=== PATIENT | female | born 1970 | race Caucasian/White ===

== ENCOUNTER 2020-04-03 07:02 | Outpatient (CLI) | payer OTHER, SELFPAY ==
[2020-04-03 07:30] LABS: Basophils Percent Auto 0.5 % (0.2-1.2); Eosinophils Absolute Auto 0.1 K/mm3 (0-0.3); Eosinophils Percent Auto 1.4 % (0-4.4); Hematocrit 40.4 % (37.0-47.0); Hemoglobin 12.8 g/dL (12.0-15.0); Immature Granulocyte Absolute 0.02 K/mm3 (0.00-0.031); Immature Granulocyte Percent A 0.3 % (0-0.5); Lymphocytes Absolute Auto 2.94 K/mm3 (0.9-3.2); Lymphocytes Percent Auto 38.4 % (18.3-44.2); Mean Corpuscular HGB Conc 31.7 g/dl (32-36); Mean Corpuscular Hemoglobin 29.5 pg (26-34); Mean Corpuscular Volume 93.1 fl (80-100); Mean Platelet Volume 9.5 fl (7.4-10.4); Monocytes Absolute Auto 0.5 K/mm3 (0.1-0.6); Monocytes Percent Auto 7.1 % (2.6-8.5); Neutrophils Percent Auto 52.3 % (45.5-73.1); Platelet Count Result 238 k/mm3 (150-375); Red Blood Count 4.34 M/mm3 (4.2-5.4); Red Cell Distribution Width 12.6 % (11.5-14.5); White Blood Count 7.7 K/mm3 (4.5-10.0)
[2020-04-03 07:42] LABS: Alanine Aminotransferase 19 U/L (4-35); Albumin Level 4.2 g/dL (3.5-5.1); Alkaline Phosphatase 81 U/L (38-126); Anion Gap 5 mmol/L (8-16); Aspartate Amino Transferase 26 U/L (14-36); Bilirubin,Total 0.4 mg/dL (0.2-1.3); Blood Urea Nitrogen 18 mg/dL (7-17); Calcium 8.8 mg/dL (8.4-10.2); Carbon Dioxide 28 mmol/L (22-30); Chloride 107 mmol/L (98-107); Cholesterol 231 mg/dL (0-200); Estimated Glomerular Filt Rate > 60; Glucose 98 mg/dL (65-105); HDL Direct 49 mg/dL; Potassium 4.2 mmol/L (3.4-5.0); Sodium 140 mmol/L (137-145); Triglycerides 75 mg/dL (<150)
[2020-04-03 07:53] LABS: LDL Cholesterol Direct 160 mg/dL
== END 2020-04-03 07:03 | disposition home or self-care (01) ==
PROVIDERS: PCP Internal Medicine Infectious Disease; Visit Provider Internal Medicine Infectious Disease
DX: Z00.00 Encounter for general adult medical examination without abnormal findings (principal)
CPT/HCPCS: 36415; 80053; 80061; 85025

== ENCOUNTER → 2020-05-17 15:19 | Outpatient (CLI) | payer OTHER, SELFPAY ==
--- NOTE | ~2020-05-17 | MM_ITS ---
EXAMINATION: MM screening [facility] BI w esther HISTORY: Screening mammogram TECHNIQUE: Craniocaudal and mediolateral oblique 3-D tomosynthesis images were obtained and synthetic 2-D images were generated. CAD analysis was submitted and interpreted. COMPARISON: 04/17/2017, 01/05/2015 BREAST PARENCHYMAL COMPOSITION: There are scattered areas of fibroglandular density. FINDINGS: A stable intramammary lymph node is noted in the lower outer right breast. There is no evid ence of suspicious mass, calcification, or architectural distortion to suggest malignancy in either b reast. There has been no suspicious interval change. IMPRESSION: 1. No mammographic evidence of malignancy. 2. Recommend routine screening mammography in one year. BI-RADS Category 2: Benign finding(s). Reviewed, dictated and finalized at location A.
== END ==
PROVIDERS: Visit Provider Internal Medicine Infectious Disease
DX: Z12.31 Encounter for screening mammogram for malignant neoplasm of breast (principal)
CPT/HCPCS: 77063; 77067

== ENCOUNTER 2020-05-26 15:45 | Outpatient (CLI) | payer OTHER, SELFPAY | END 2020-05-26 15:46 | disposition home or self-care (01) | LOC: ANHCOVIDVC 15:45 | DX: Z23 Encounter for immunization (principal) | CPT/HCPCS: 0001A; 91300 ==

== ENCOUNTER 2020-06-16 15:43 | Outpatient (CLI) | payer OTHER, SELFPAY | END 2020-06-16 15:44 | LOC: ANHCOVIDVC 15:44 | DX: Z23 Encounter for immunization (principal) | CPT/HCPCS: 0002A; 91300 ==

== ENCOUNTER 2021-04-06 08:53 | Outpatient (CLI) | payer OTHER, SELFPAY ==
[2021-04-06 09:31] LABS: Basophils Percent Auto 0.4 % (0.2-1.2); Eosinophils Percent Auto 0.5 % (0-4.4); Hematocrit 37.4 % (37.0-47.0); Hemoglobin 12.1 g/dL (12.0-15.0); Immature Granulocyte Absolute 0.03 K/mm3 (0.00-0.031); Immature Granulocyte Percent A 0.4 % (0-0.5); Lymphocytes Absolute Auto 2.63 K/mm3 (0.9-3.2); Lymphocytes Percent Auto 34.6 % (18.3-44.2); Mean Corpuscular HGB Conc 32.4 g/dl (32-36); Mean Corpuscular Hemoglobin 30.4 pg (26-34); Mean Platelet Volume 10.2 fl (7.4-10.4); Monocytes Absolute Auto 0.4 K/mm3 (0.1-0.6); Monocytes Percent Auto 5.7 % (2.6-8.5); Neutrophils Absolute Auto 4.5 K/mm3 (1.3-6.7); Neutrophils Percent Auto 58.4 % (45.5-73.1); Platelet Count Result 244 k/mm3 (150-375); Red Blood Count 3.98 M/mm3 (4.2-5.4); Red Cell Distribution Width 11.9 % (11.5-14.5); White Blood Count 7.6 K/mm3 (4.5-10.0)
[2021-04-06 09:40] LABS: Alanine Aminotransferase 16 U/L (4-35); Albumin Level 4.2 g/dL (3.5-5.1); Alkaline Phosphatase 120 U/L (38-126); Anion Gap 10 mmol/L (8-16); Aspartate Amino Transferase 29 U/L (14-36); Bilirubin,Total 0.4 mg/dL (0.2-1.3); Blood Urea Nitrogen 13 mg/dL (7-17); Carbon Dioxide 27 mmol/L (22-30); Chloride 103 mmol/L (98-107); Cholesterol 200 mg/dL (0-200); Estimated Glomerular Filt Rate > 60; Glucose 100 mg/dL (65-110); HDL Direct 37 mg/dL; Potassium 3.9 mmol/L (3.4-5.0); Sodium 140 mmol/L (137-145); Triglycerides 96 mg/dL (<150)
[2021-04-06 09:51] LABS: LDL Cholesterol Direct 140 mg/dL
== END 2021-04-06 08:54 | disposition home or self-care (01) ==
LOC: ANHLAB 08:55
PROVIDERS: Visit Provider Internal Medicine Infectious Disease
DX: Z00.00 Encounter for general adult medical examination without abnormal findings (principal)
CPT/HCPCS: 36415; 80053; 80061; 85025

== ENCOUNTER → 2021-08-05 10:32 | Outpatient (CLI) | payer OTHER, SELFPAY ==
--- NOTE | ~2021-08-05 | MM_ITS ---
EXAMINATION: MM screening [facility] BI w esther HISTORY: Screening TECHNIQUE: Craniocaudal and mediolateral oblique 3-D tomosynthesis images were obtained and synthetic 2-D images were generated. CAD analysis was submitted and interpreted. COMPARISON: Comparison to multiple prior studies sequentially, with oldest reviewed study dated 12/20. BREAST PARENCHYMAL COMPOSITION: There are scattered areas of fibroglandular density. FINDINGS: There is no evidence of suspicious mass, calcification, or architectural distortion to sugg est malignancy in either breast. There has been no suspicious interval change. IMPRESSION: 1. No mammographic evidence of malignancy. 2. Recommend routine screening mammography in one year. BI-RADS Category 1: Negative Reviewed, dictated and finalized at location A.
== END ==
PROVIDERS: PCP Internal Medicine Infectious Disease; Visit Provider Obstetrics & Gynecology
DX: Z12.31 Encounter for screening mammogram for malignant neoplasm of breast (principal)
CPT/HCPCS: 77063; 77067

== ENCOUNTER 2022-04-08 07:21 | Outpatient (CLI) | payer OTHER, SELFPAY ==
[2022-04-08 07:54] LABS: Basophils Percent Auto 0.4 % (0.2-1.2); Eosinophils Absolute Auto 0.1 K/mm3 (0-0.3); Hematocrit 37.4 % (37.0-47.0); Hemoglobin 11.8 g/dL (12.0-15.0); Immature Granulocyte Absolute 0.03 K/mm3 (0.00-0.031); Immature Granulocyte Percent A 0.4 % (0-0.5); Lymphocytes Percent Auto 39.3 % (18.3-44.2); Mean Corpuscular HGB Conc 31.6 g/dl (32-36); Mean Corpuscular Hemoglobin 29.9 pg (26-34); Mean Corpuscular Volume 94.7 fl (80-100); Mean Platelet Volume 9.9 fl (7.4-10.4); Monocytes Absolute Auto 0.6 K/mm3 (0.1-0.6); Monocytes Percent Auto 7.9 % (2.6-8.5); Neutrophils Absolute Auto 3.9 K/mm3 (1.3-6.7); Platelet Count Result 227 k/mm3 (150-375); Red Blood Count 3.95 M/mm3 (4.2-5.4); Red Cell Distribution Width 12.2 % (11.5-14.5); White Blood Count 7.6 K/mm3 (4.5-10.0)
[2022-04-08 08:07] LABS: Alanine Aminotransferase 18 U/L (6-35); Albumin Level 3.8 g/dL (3.5-5.1); Alkaline Phosphatase 74 U/L (38-126); Anion Gap 2 mmol/L (8-16); Aspartate Amino Transferase 20 U/L (14-36); Bilirubin,Total 0.5 mg/dL (0.2-1.3); Blood Urea Nitrogen 12 mg/dL (7-17); Calcium 8.3 mg/dL (8.4-10.2); Carbon Dioxide 30 mmol/L (22-30); Chloride 108 mmol/L (98-107); Cholesterol 201 mg/dL (0-200); Estimated Glomerular Filt Rate > 60; Glucose 96 mg/dL (65-110); HDL Direct 39 mg/dL; Potassium 4.1 mmol/L (3.4-5.0); Sodium 140 mmol/L (137-145); Triglycerides 79 mg/dL (<150)
[2022-04-08 08:18] LABS: LDL Cholesterol Direct 124 mg/dL
[2022-04-12 05:26] LABS: Varicella IgG Antibody <135.00 Index (>=165.00)
== END 2022-04-08 07:22 | disposition home or self-care (01) ==
PROVIDERS: PCP Internal Medicine Infectious Disease; Visit Provider Internal Medicine Infectious Disease
DX: Z00.00 Encounter for general adult medical examination without abnormal findings (principal)
CPT/HCPCS: 36415; 80053; 80061; 85025; 86787

== ENCOUNTER 2022-05-05 16:06 | Outpatient (CLI) | payer OTHER, SELFPAY ==
[2022-05-05 16:20] LABS: Basophils Percent Auto 0.5 % (0.2-1.2); Eosinophils Absolute Auto 0.1 K/mm3 (0-0.3); Eosinophils Percent Auto 1.2 % (0-4.4); Hematocrit 37.2 % (37.0-47.0); Hemoglobin 11.8 g/dL (12.0-15.0); Immature Granulocyte Absolute 0.02 K/mm3 (0.00-0.031); Immature Granulocyte Percent A 0.2 % (0-0.5); Lymphocytes Absolute Auto 3.57 K/mm3 (0.9-3.2); Lymphocytes Percent Auto 44.5 % (18.3-44.2); Mean Corpuscular HGB Conc 31.7 g/dl (32-36); Mean Corpuscular Hemoglobin 30.3 pg (26-34); Mean Corpuscular Volume 95.4 fl (80-100); Mean Platelet Volume 9.9 fl (7.4-10.4); Monocytes Absolute Auto 0.7 K/mm3 (0.1-0.6); Monocytes Percent Auto 8.4 % (2.6-8.5); Neutrophils Absolute Auto 3.6 K/mm3 (1.3-6.7); Neutrophils Percent Auto 45.2 % (45.5-73.1); Platelet Count Result 214 k/mm3 (150-375); Red Cell Distribution Width 12.2 % (11.5-14.5)
== END 2022-05-05 16:07 | disposition home or self-care (01) ==
PROVIDERS: PCP Internal Medicine Infectious Disease; Visit Provider Internal Medicine Infectious Disease
DX: E78.00 Pure hypercholesterolemia, unspecified (principal)
CPT/HCPCS: 36415; 85025

== ENCOUNTER 2022-10-19 14:44 | Outpatient (CLI) | payer OTHER, SELFPAY ==
--- NOTE | ~2022-10-19 | MM_ITS ---
EXAMINATION: MM screening [facility]anna BI w esther HISTORY: Screening mammogram, family history of breast cancer in her mother. TECHNIQUE: Craniocaudal and mediolateral oblique 3-D tomosynthesis images were obtained and synthetic 2-D images were generated. CAD analysis was submitted and interpreted. COMPARISON: 08/05/2021, 05/17/2020, 04/17/2018 BREAST PARENCHYMAL COMPOSITION: There are scattered areas of fibroglandular density. FINDINGS: A stable intramammary lymph node is noted in the posterior third of the lower-outer right b reast. No suspicious mass, calcification, or architectural distortion are identified in either breast to suggest malignancy. There has been no suspicious interval change. IMPRESSION: 1. No mammographic evidence of malignancy. 2. Recommend routine screening mammography in one year. BI-RADS Category 2: Benign finding(s). Reviewed, dictated and finalized at location B.
== END 2022-10-19 14:45 | disposition home or self-care (01) ==
PROVIDERS: PCP Internal Medicine Infectious Disease; Visit Provider Obstetrics & Gynecology
DX: Z12.31 Encounter for screening mammogram for malignant neoplasm of breast (principal)
CPT/HCPCS: 77063; 77067

== ENCOUNTER 2023-04-07 08:23 | Outpatient (CLI) | payer OTHER, SELFPAY ==
[2023-04-07 09:11] LABS: Basophils Percent Auto 0.6 % (0.2-1.2); Eosinophils Absolute Auto 0.3 K/mm3 (0-0.3); Eosinophils Percent Auto 4.2 % (0-4.4); Hematocrit 38.9 % (37.0-47.0); Hemoglobin 12.2 g/dL (12.0-15.0); Immature Granulocyte Absolute 0.01 K/mm3 (0.00-0.031); Immature Granulocyte Percent A 0.2 % (0-0.5); Lymphocytes Absolute Auto 2.52 K/mm3 (0.9-3.2); Lymphocytes Percent Auto 38.8 % (18.3-44.2); Mean Corpuscular HGB Conc 31.4 g/dl (32-36); Mean Corpuscular Hemoglobin 29.5 pg (26-34); Mean Corpuscular Volume 94.2 fl (80-100); Mean Platelet Volume 10.2 fl (7.4-10.4); Monocytes Absolute Auto 0.7 K/mm3 (0.1-0.6); Monocytes Percent Auto 10.5 % (2.6-8.5); Neutrophils Percent Auto 45.7 % (45.5-73.1); Platelet Count Result 209 k/mm3 (150-375); Red Blood Count 4.13 M/mm3 (4.2-5.4); Red Cell Distribution Width 11.9 % (11.5-14.5); White Blood Count 6.5 K/mm3 (4.5-10.0)
[2023-04-07 09:25] LABS: Alanine Aminotransferase 13 U/L (6-35); Albumin Level 4.1 g/dL (3.5-5.1); Alkaline Phosphatase 79 U/L (38-126); Anion Gap 4 mmol/L (8-16); Aspartate Amino Transferase 26 U/L (14-36); Bilirubin,Total 0.5 mg/dL (0.2-1.3); Blood Urea Nitrogen 15 mg/dL (7-17); Calcium 8.9 mg/dL (8.4-10.2); Carbon Dioxide 30 mmol/L (22-30); Chloride 106 mmol/L (98-107); Cholesterol 188 mg/dL (0-200); Estimated Glomerular Filt Rate > 60; Glucose 91 mg/dL (65-110); HDL Direct 40 mg/dL; Potassium 3.9 mmol/L (3.4-5.0); Sodium 140 mmol/L (137-145); Triglycerides 104 mg/dL (<150)
[2023-04-07 09:36] LABS: LDL Cholesterol Direct 116 mg/dL
== END 2023-04-07 08:24 | disposition home or self-care (01) ==
LOC: ANHLAB 08:26
PROVIDERS: PCP Internal Medicine Infectious Disease; Visit Provider Internal Medicine Infectious Disease
DX: Z00.00 Encounter for general adult medical examination without abnormal findings (principal)
CPT/HCPCS: 36415; 80053; 80061; 85025

== ENCOUNTER 2023-10-30 14:25 | Outpatient (CLI) | payer OTHER, SELFPAY ==
--- NOTE | ~2023-10-30 | MM_ITS ---
EXAMINATION: MM screening rianna BI w esther HISTORY: Screening mammogram, family history of breast cancer in her mother. TECHNIQUE: Craniocaudal and mediolateral oblique 3-D tomosynthesis images were obtained and synthetic 2-D images were generated. CAD analysis was submitted and interpreted. COMPARISON: 10/19/2022, 08/05/2021, 05/17/2020, 04/17/2017 BREAST PARENCHYMAL COMPOSITION:Not Dense. There are scattered areas of fibroglandular density. FINDINGS: Stable benign right intramammary lymph node. No suspicious mass, calcification, or architec tural distortion are identified in either breast to suggest malignancy. There has been no suspicious interval change. IMPRESSION: No mammographic evidence of malignancy. Recommend routine screening mammography in one year. BI-RADS Category 2: Benign finding(s). Reviewed, dictated and finalized at location .
== END 2023-10-30 14:26 | disposition home or self-care (01) ==
PROVIDERS: PCP Internal Medicine Infectious Disease; Visit Provider Internal Medicine Infectious Disease
DX: Z12.31 Encounter for screening mammogram for malignant neoplasm of breast (principal)
CPT/HCPCS: 77063; 77067

== ENCOUNTER 2024-04-22 07:27 | Outpatient (CLI) | payer OTHER, SELFPAY ==
[2024-04-22 08:14] LABS: Basophils Percent Auto 0.5 % (0.2-1.2); Eosinophils Absolute Auto 0.1 K/mm3 (0-0.3); Eosinophils Percent Auto 0.9 % (0-4.4); Hematocrit 38.9 % (37.0-47.0); Hemoglobin 12.4 g/dL (12.0-15.0); Immature Granulocyte Absolute 0.03 K/mm3 (0.00-0.031); Immature Granulocyte Percent A 0.4 % (0-0.5); Lymphocytes Absolute Auto 2.62 K/mm3 (0.9-3.2); Mean Corpuscular HGB Conc 31.9 g/dl (32-36); Mean Corpuscular Hemoglobin 30.2 pg (26-34); Mean Corpuscular Volume 94.9 fl (80-100); Mean Platelet Volume 10.1 fl (7.4-10.4); Monocytes Absolute Auto 0.7 K/mm3 (0.1-0.6); Monocytes Percent Auto 8.4 % (2.6-8.5); Neutrophils Absolute Auto 4.5 K/mm3 (1.3-6.7); Neutrophils Percent Auto 56.8 % (45.5-73.1); Platelet Count Result 232 k/mm3 (150-375); Red Cell Distribution Width 12.1 % (11.5-14.5); White Blood Count 7.9 K/mm3 (4.5-10.0)
[2024-04-22 08:36] LABS: Alanine Aminotransferase 14 U/L (6-35); Albumin Level 3.9 g/dL (3.5-5.1); Alkaline Phosphatase 84 U/L (38-126); Anion Gap 5 mmol/L (4-12); Aspartate Amino Transferase 22 U/L (14-36); Bilirubin,Total 0.5 mg/dL (0.2-1.3); Blood Urea Nitrogen 15 mg/dL (7-17); Calcium 8.9 mg/dL (8.4-10.2); Carbon Dioxide 29 mmol/L (22-30); Chloride 105 mmol/L (98-107); Cholesterol 203 mg/dL (0-200); Estimated Glomerular Filt Rate > 60; Glucose 101 mg/dL (65-110); HDL Direct 48 mg/dL; Potassium 4.4 mmol/L (3.4-5.0); Sodium 139 mmol/L (137-145); Triglycerides 68 mg/dL (<150)
[2024-04-22 08:47] LABS: LDL Cholesterol Direct 121 mg/dL
== END 2024-04-22 07:28 | disposition home or self-care (01) ==
LOC: ANHLAB 07:29
PROVIDERS: PCP Internal Medicine Infectious Disease; Visit Provider Internal Medicine Infectious Disease
DX: Z00.00 Encounter for general adult medical examination without abnormal findings (principal)
CPT/HCPCS: 36415; 80053; 80061; 85025

== ENCOUNTER 2024-11-25 15:00 | Outpatient (CLI) | payer OTHER, SELFPAY ==
--- OUTSIDE RECORDS SUMMARY | 2013-11-18 03:30 | XMS_ITS | Continuity of Care Document ---
Author Organization [facility] Address [address] [place] [address] [place] [address] Phone Care Team Providers Care Cable Maintainer Name Role Phone Cl Corrigan Unavailable Unavailable Procedures Procedure Date Repr Retinal Detach; W/vitrect 14 Remov Lens Mat; Aspirt Tech 14 Advance Directives Directive Yes / No Effective Date File Name No Information Encounters Encounter Description Practice Location Reason(s) For Visit Diagnoses Date Provider Providers Copied on Encounter [facility], [address], [place], [place], [id number], [place] tel:[phone] [facility] No Information 0 4 Shekhar Smallwood. [address] [place] [address], [id number], [place]. tel:[phone] Referring Provider: Cl Corrigan, [facility] [place], [address]. tel:[phone] Family History Family Member Type Diagnosis Age At Onset No Information Payers Payer name Insurance type Covered alliance party ID Authoriza tion(s) No Information Social History Type Description Quantity Date Captured Comments Sex Female Smoking Status No Information Chief Complaint And Reason For Visit No Information Reason For Referral Reason For Referral No Information History Of Present Illness Encounter Date Complaint History Of Prese nt Illness No Information Functional Status Date Functional Assessmen t No Information Instructions Date Instruction Additional Infor mation No Information Assessments Type Assessment Date No Information Patient Care Teams Name Effective Dates (start - stop) Status Members No Information
--- OUTSIDE RECORDS SUMMARY | 2016-08-13 19:00 | XMS_ITS | Continuity of Care Document ---
Author Organization [facility] Address [address] [place] [address] Phone Care Team Providers Care Application Development Intern Name Role Phone Babak CLAYTON MD, Sapna Unavailable Unavailabl e Procedures Procedure Date Echo, Complete, Interp Advance Directives Directive Yes / No Effective Date File Name No Information Encounters Encounter Description Practice Location Reason(s) For Visit Diagnoses Date Provider Providers Copied on Encounter [facility], [address], [place], [address], [place] tel:[phone] [facility] No Information 7 Babak Alejo. [facility], [address], [place], [place], [id number], [place]. tel:[phone] Referring Provider: Ced Molina, [address] [place] [address], [id number]. tel:[phone] Family History Family Member Type Diagnosis Age At Onset No Information Payers Payer name Insurance type Covered democrat ID Authoriza tion(s) No Information Social History [...]
--- OUTSIDE RECORDS SUMMARY | 2022-11-01 19:00 | XMS_ITS | Continuity of Care Document ---
Author Organization [facility] Address [address] [place] [address] Phone Care Team Providers Care Instructor Pilot Name Role Phone Ann CLAYTON MD, Cl Unavailable Unavailable Allergies, Adverse Reactions, Alerts Substance Reaction Status Criticality azithromycin violently ill Active No Information codeine welts Active No Information HYDROXYZINE PAMOATE swelling Active No Infor mation HYDROXYZINE HCL swelling Active No Informati on HYDROXYZINE PAMOATE swelling(severe) Active No I nformation HYDROXYZINE HCL swelling(severe) Active No Infor mation azithromycin vomiting(severe) Active No Informat ion codeine hives(moderate) Active No Informati on Medications Medication Instructions Dosage Effective Dates (start - stop) Status Comments JANUVIA (unknown strength) Not Available - Active MELATONIN (unknown strength) Not Available - Active VITAMIN D3 (unknown strength) Not Available - Active PROAIR HFA (unknown strength) Not Available - Active AMITRIPTYLINE HCL (unknown strength) Not Available - Active ATORVASTATIN CALCIUM (unknown strength) Not Available - Active LEXAPRO (unknown strength) Not Available - Active RIOMET (unknown strength) Not Available - Active LOSARTAN POTASSIUM (unknown strength) Not Available - Active Procedures Procedure Date Admin Form Charge SPECIAL EYE EXAM, INITIAL OFFICE CONSULTATION REFRACTION EYE EXAM & TREATMENT REFRACTION POSTOP FOLLOW-UP VISIT POSTOP FOLLOW-UP VISIT POSTOP FOLLOW-UP VISIT Repair Of Retinal Detachment With Vitrec celestino Any Method SPECIAL EYE EXAM, INITIAL SPECIAL EYE EXAM, INITIAL OFFICE CONSULTATION Advance Directives Directive Yes / No Effective Date File Name No Information Encounters Encounter Description Practice Location Reason(s) For Visit Diagnoses Date Provider Providers Copied on Encounter [facility], [address] [place] [address], [id number] [phone] [facility] No Information 3 Ann Smallwood. [facility], [address] [place] [address], [id number]. tel:[phone] Referring Provider: Bharath Butler OD, [address] [place] [address], [id number]. tel:[phone] OFFICE CONSULTATION [facility], [address] [place] [address], [id number] tel:[phone] [facility] Other vitreous opacities, left eyeTotal retinal detachment, right eyeType 2 diabetes mellitus without complication , without long-term current use of insulinLong term current use of oral hypoglycemic drugNuclear senile cataract of both eyes Jayson Cesar. [facility], [address] [place] [address], [id number]. tel:[phone] Referring Provider: Bharath Butler OD, [address] [place] [address], [id number]. tel:[phone] [facility], [address] [place] [address], [id number] tel:[phone] [facility] Old retinal detachment, total or subtotalDiab etes Mellitus Type 2, Uncomplicate d Shekhar Smallwood. [address] [place] [address], [id number], . tel:[phone] Referring Provider: Bharath Butler OD, [address] [place] [address], [id number]. tel:[phone] [facility], [address] [place] [address], [place], [id number] tel:[phone] [facility] Recent retinal detachment, total or subtotal Oct-3 0-201 4 Shekhar Smallwood. [facility] [place], [address], [place]. tel:[phone] Referring Provider: Bharath Butler OD, [address] [place] [address], [id number]. tel:[phone] [facility], [facility] [address] [place], [place], [id number] tel:[phone] [facility] Recent retinal detachment, total or subtotal Oct-0 9-201 4 Shekhar Smallwood. [facility] [place], [address], [place]. [phone] Referring Provider: Bharath Butler OD, [address] [place] [address], [id number]. tel:[phone] [facility], [facility] [address] [place], [place], [id number] tel:[phone] [facility] Recent retinal detachment, total or subtotalRece nt retinal detachment, total or subtotal Oct-0 1-201 4 Shekhar Smallwood. [facility] [place], [address], [place]. tel:[phone] Referring Provider: Bharath Butler OD, [address] [place] [address], [id number]. tel:[phone] [facility], [facility] [address] [place], [place], [id number] tel:[phone] [facility] No Information Sep-3 0-201 4 Shekhar Smallwood. [facility] [place], [address], [place]. tel:[phone] Referring Provider: Bharath Butler OD, [address] [place] [address], [id number]. tel:[phone] OFFICE CONSULTATION [facility], [facility] [address]ing [place], [place], [id number] tel:[phone] [facility] Recent retinal detachment, total or subtotalRoun d hole of retina without detachmentRo und hole of retina without detachment Oct-201 4 Shekhar Smallwood. [address] [place] [address], [address], . tel:[phone] Referring Provider: Bharath Butler OD, [address] [place] [address], [id number]. tel:[phone] Family History Family Member Type Diagnosis Age At Onset Father Problem (finding) Retinal Detachment Payers Payer name Insurance type Covered constitution party ID Authoriza tion(s) No Information Social [...] Information Instructions Date Instruction Additional Infor mation Nuclear senile catar act of both eyes OU Condition: new prob, no addtl w/u needed. - Discussed cataracts seen in both eyes today. Will wait to have those evaluated until the left eye is stable. Monitor. Related to Nuclear senile cataract of both eyes Old retinal detachme nt of right eye OD Condition: new prob, no addtl w/u needed. - History of retinal detachment in right eye, stable. Monitor. Related to Old retinal detachment of right eye Follow up - Return i n 2 weeks with Arsenio Tyler MD for Complete and Dilate. Related to Vitreous syneresis of left eye Vitreous syneresis o f left eye OS Condition: new prob, no addtl w/u needed. - Discussed with patient that depressed exam was done, no holes or tears seen. Stressed calling if alot of new floaters, flashes of light, curtain or veil as this could be a sign of a tear or detachment that can cause permant vision loss. RTC in 2 weeks for repeat dilation. Related to Vitreous syneresis of left eye oysterman current us e of oral hypoglycemic drug OU Condition: new prob, no addtl w/u needed. - Continue as directed by PCP/ Specialist. Related to custodial current use of oral hypoglycemic drug Type 2 diabetes katherine itus without complication, without long-term current use of insulin OU Condition: new prob, no addtl w/u needed. - No DRAFTER AUTOMOTIVE DESIGN LAYOUT seen today. Stressed good BP/BS, cholesterol and serum lipids control to reduce risk of future progression. Related to Type 2 diabetes mellitus without complication, without long-term current use of insulin Follow up - Return i n 6 months with Cl Corrigan MD for Dilate and IOP. Related to Old retinal detachment, total or subtotal Old retinal detachme nt, total or subtotal OD Condition: established, stable. - Educational materials provided: Retina attached and stable. Gave updated glasses Rx to pt to take to Dr Butler--explained vision will not be normal due to macula involved with original detachment. RT/RD warnings reviewed, call with changes Related to Old retinal detachment, total or subtotal Adult-onset diabetes OU Condition: established, stable. - stable, no diabetic changes seen in either eye. Stressed blood pressure, blood sugar, cholesterol & lipid control to reduce risk of future progression. Related to Adult-onset diabetes - Return in 6 weeks with Cl Corrigan MD for Complete and refraction. Related to Recent retinal detachment, total or subtotal Recent retinal detac hment, total or subtotal OD Condition: established, stable. - Retina stable, healing well. Discussed no new holes/tears/detachment seen. Reviewed warning signs of retinal tear or detachment. Call with problems or symptoms.Vision is improving nicely, but will never fully recover due to nature of mac off detachment. Decrease Pred to once a day x 2 weeks then stop. Related to Recent retinal detachment, total or subtotal Follow up - Return i n 3 weeks with Cl Corrigan MD for Dilate, IOP and refraction. Related to Recent retinal detachment, total or subtotal Recent retinal detac hment, total or subtotal OD Condition: established, stable. - Retina attached, in position and healing well. Will ultimately require a glasses change--guarded for visual recovery due to macula involved in original detachment.Discontinue Cyclo (registered nurse), and shield.Pred Forte (white or pink cap)- shake before using... 4x a day for 2 wks then 2x a day til see Dr Corrigan again.Vigamox (worley cap)...4x a day til weekend then stop.Call with increased pain, decreased vision. Related to Recent retinal detachment, total or subtotal - Return in as sched uled with Cl Corrigan MD for post-op. Related to Recent retinal detachment, total or subtotal Recent retinal detac hment, total or subtotal OD Condition: established, stable. - Retina is attached, bubble in place. Bubble will limit vision for 6-7 days, even after it's resolved though vision will never fully recover due to nature of mac off detachment. No new holes/tears/detachment seen. Reviewed tear/detachment/infection precautions with patient. Call with symptoms. Use cool compress for comfort and to reduce lid swelling, pain generally subsides after first 24 hours. Drops: right eyePredforte 4 times/dayCyclogyl 2 times/dayVigamox 4 times/daySleep shielded. No bending, exercise, lifting > 20lbs, no rapid eye movement. Related to Recent retinal detachment, total or subtotal Recent retinal detac hment, total or subtotal OD Condition: new problem addtl w/u needed. - Educational materials provided: Discussed RD- (Retinal Detachment)Secondary to separation of vitreous gel has caused a hole/tear in retina which allowed fluid to get under retina and lift it off. Explained macula is involved in detachment (center part of retina)-guarded prognosis for visual recovery even if successful in putting retina back into position. Will req Surgery to repair. Discussed Scleral Buckle Procedure, Pars Plana Vitrectomy, Fluid/Air/Gas Exchange - Explnd with eye model- OP, local IV sed- Silicone band placed around wall of eye to indent the eye and support tear(s). Small incisions made into the white part of the eye, vitreous gel is removed and insert a air/gas bubble to push retina back into position. Risk failed procedure, increased myopia, Retinal Tear/Retinal Detachment, increased IOP, increased cataract, hemorrhage, infection, Loss of vision/Loss of eye. Will require face down position first 60 min after surgery. Likely be off work for at least 1 week. Related to Recent retinal detachment, total or subtotal Hole in the retina ( light-sensitive tissue in the OD Condition: new prob, no addtl w/u needed. - SEE PLAN 1 Related to Hole in the retina (light-sensitive tissue in the - Return in with Cl Meza MD for surgery. Related to Recent retinal detachment, total or subtotal Recent retinal detac hment, total or subtotal OD - Cataract will progress faster due to retinal surgery-likely require surgery to remove within 6-12 months. Buckle will also make pt more nearsighted in operative eye. PT UNDERSTANDS R&B ASSOCIATED WITH TREATMENT ELECTS TO PROCEED.Pt is at increased risk of similar event in fellow eye-RT/RD warnings reviewed and pamphlet given.SBP,PPV,F/AX OD Related to Recent retinal detachment, total or subtotal Assessments Type Assessment Date No Information Patient Care Teams Name Effective Dates (start - stop) Status Members No Information
--- OUTSIDE RECORDS SUMMARY | 2024-10-13 08:00 | XMS_ITS ---
Author Organization [facility] Address [address] [place] [address] Care Team Providers Care Fine Arts Packer Name Role Phone Isrrael, Colby Unavailable [phone] REASON FOR VISIT Sick visit Encounters Encounter Location Date Provider Diagnosis [facility] [address] [place] [phone] 10/13/2024 Colby Arcos Plan Of Treatment No Information Progress Notes * Caryl AVILESDOB:1970 (54 yo F)Acc No.[id number]:10/13/2024 Progress Notes Patient: Caryl BARKLEY Provider: KARYNA Gonzalez :1970 A ge:54 Y S ex:Female Date:10/13/2024 Address:[address] [place], [place] [id number] Subjective: * Chief Complaints: * 1 . Sick visit. * Medical History: Objective: * Vitals: Assessment: Plan: * Treatment: * Billing Information: * Visit Code: * Procedure Codes: * Electronic signature of KARYNA Tomas on 11/25/2024 at 04:56 PM EDT Sign off status: Pending * Provider: KARYNA Gonzalez Date: 0 10/13/2024 Generated for Yue perez/Theodore/eTransmitting on: 1 04:56 PM EDT
--- NOTE | ~2024-11-25 | MM_ITS ---
EXAMINATION: MM screening rianna BI w esther HISTORY: Screening TECHNIQUE: Craniocaudal and mediolateral oblique 3-D tomosynthesis images were obtained and synthetic 2-D images were generated. CAD analysis was submitted and interpreted. COMPARISON: Comparison to multiple prior studies sequentially, with oldest reviewed study dated , 05/17/2020 BREAST PARENCHYMAL COMPOSITION: There are scattered areas of fibroglandular density. FINDINGS: There is no evidence of suspicious mass, calcification, or architectural distortion to suggest malignancy in either breast. IMPRESSION: 1. No mammographic evidence of malignancy. 2. Recommend routine screening mammography in one year. BI-RADS Category 1: Negative Reviewed, dictated and finalized at location B.
--- OUTSIDE RECORDS SUMMARY | 2024-11-25 15:56 | XMS_ITS | Encounter Summary ---
Author Organization [facility] Address [address] [place] [address] Phone Care Team Providers Care Stenotype Machine Operator Name Role Phone Selvin Dhillon MD Primary Care Provider [phone] Narayan Morrison MD Unavailable [phone] Encounter Details Date Type Department Care Team (Late st Contact Info) Description 04/08/2022 Orders Only [facility] [address] [place] [address] Scanning, Provider Social History Tobacco Use Types Packs/Day Years Used Date Smoking Tobacco: Never Smokeless Tobacco: Never Alcohol Use Standard Drinks/Week Comments Yes 0 (1 standard drink = 0.6 oz pur e alcohol) PHQ-2 Answer Date Recorded PHQ-2 Total Score (If total score is 3 or more points, staff should administer the PHQ-9) 0 09/02/2021 Comments No Sex and Gender Information Value Date Recorded Sex Assigned at Not on file Legal Sex Female 6:02 PM [employer] Gender Identity Female 06/15/2020 8:47 AM CDT Sexual Orientation Straight 06/15/2020 8: 47 AM CDT documented as of this encounter Plan of Treatment Not on file documented as of this encounter Procedures Procedure Name Priority Date/Time Associated Diagnosis Comments SCAN - LABS 04/08/2022 documented in this encounter Results * SCAN - LABS (04/08/2022) us Provider Scanning Final Result documented in this encounter Visit Diagnoses Not on filedocumented in this encounter Additional Health Concerns Infection Onset Date Last Indicated Resolved Time COVID: Suspected 04/18/2022 04/18/2022 04/19/2022 3:05 AM SR. [employer] documented as of this encounter Care Teams Stenotype Machine Operator Relationship Specialty Start Date End Date Selvin Dhillon MD [address] [place] [address] PCP - General Internal Medicine 04/02/20 Narayan Morrison MD [address] [place] [address] Knapsack Sprayer Obstetrics and Gynecology 04/02/20 documented as of this encounter
--- OUTSIDE RECORDS SUMMARY | 2024-11-25 15:56 | XMS_ITS | Clinical Summary ---
Author Organization [facility] Address [address] [place] [address] Care Team Providers Care Sound Effects Manager Name Role Phone Selvin Dhillon MD Primary Care Provider [phone] Narayan Morrison MD Unavailable [phone] Allergies Active Allergy Reactions Criticality Noted Date Comments Bupropion Itching Low Bupropion Hcl Itching Low 08/23/2016 Desipramine Hcl Hives Medium Pravastatin Muscle pain Medium Reaction: Myalgias, Simvastatin Muscle pain Medium Reaction: Myalgias, Medications No known medications Active Problems Problem Noted Date Diagnosed Date Routine physical examination 05/12/2024 Assessment & Plan (05/12/2024 3:04 PM CDT): IMMUNIZATIONS WERE REVIEWED EYE EXAM AND DENTAL UPTODATE ARRANGE COLGARD MAMMOGRAM AND ASBESTOS SHINGLE INSPECTOR UPTODATE LABS WERE DISCUSSED THERE IS NO COGNTIVE DECLINE Greater trochanteric bursitis of right hip 09/13 Right hip flexor tightness 09/13/2016 Sacroiliac joint pain 09/13/2016 Iliotibial band syndrome of right side 7 Raynaud's phenomenon 07/05/2013 Overview (05/24/2016): RAYNAUD'S SYNDROME Pure hypercholesterolemia 07/05/2013 Overview (05/25/2016): PURE HYPERCHOLESTEROLEM Depression 07/05/2013 Overview (05/25/2016): DEPRESSIVE DISORDER NEC No pathologic diagnosis 06/24/2012 Overview (05/25/2016): No diagnosis Immunizations Immunization Administration Dates Next Due Influenza, Quadrivalent, Spl it, Preservative Free, Intramuscular 12/15/2022 Influenza, Trivalent, Preser vative Free, Intramuscular 11/30/2023 Influenza, Unspecified 12/11/2022(Deferr ed: Patient Refused),11/19/2016,11/20/2015 Tdap 12/02/2009 Surgical History Surgery Date Site/Laterality Comments HYSTERECTOMY Hysterectomy SALPINGOOPHORECTOMY salpingo-oophorectomy OTHER SURGICAL HISTORY 1986 : OTHER SURGICAL HISTORY 1990 : OTHER SURGICAL HISTORY 1991 : OTHER SURGICAL HISTORY 2003 LAVH, RSO Medical History Medical History Date Comments Depression Depression Hx Other Medical 1986 ; Outc ome: 8 lb(s) 9 oz Female Hx Other Medical 1990 ; Outc ome: 7 lb(s) 14 oz Male Hx Other Medical 1991 ; Outc ome: 8 lb(s) Female Family History Medical History Relation Name Comments Other Daughter raynaud's; Coronary artery disease Father Serina nary artery disease; Diabetes Father Heart disease Father Hyperlipidemia Father Hyperlipidemi a; Hypertension Father Hypertension; Coronary artery disease Maternal Grandfather Coronary artery disease; Diabetes Maternal Grandfather Diabete s mellitus; Lymphoma Maternal Grandmother Breast cancer Mother Rheum arthritis Mother Rheumatoid a rthritis; Heart disease Paternal Grandfather Hyperlipidemia Paternal Grandfather Hypertension Paternal Grandfather Endometrial cancer Paternal Grandmother C ancer, endometrial; Cancer Neg Hx Kidney disease Neg Hx Relation Name Status Comments Daughter Father Maternal Grandfather Maternal Grandmother Mother Paternal Grandfather Paternal Grandmother Alive Social History Tobacco Use Types Packs/Day Years Used Date Smoking Tobacco: Never Smokeless Tobacco: Never Tobacco Cessation:Counseling Given: Not Answered Alcohol Use Standard Drinks/Week Comments Yes 0 (1 standard drink = 0.6 oz pur e alcohol) Humiliation, Afraid, Rape, and Kick questionnair e Answer Date Recorded Within the last year, have y ou been afraid of your partner or ex-partner? No 09/04/2022 Within the last year, have y ou been humiliated or emotionally abused in other ways by your partner or ex-partner? No Within the last year, have y ou been kicked, hit, slapped, or otherwise physically hurt by your partner or ex-partner? No 09/04/2022 Within the last year, have y ou been raped or forced to have any kind of sexual activity by your partner or ex-partner? 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 Gender Identity Female 06/15/2020 8:47 AM CDT Sexual Orientation Straight 06/15/2020 8: 47 AM CDT Obstetrics History Para Term AB IAB SAB Ectopic Multiple Livin g Live Births 3 3 3 3 3 Date Outcome GA Total Labor Labor/2nd/3rd Weight Sex Type Anes PTL Isabel A1 A5 Name Clin 7 Term 3.884 kg (8 lb 9 oz) F CS-Un spec Living 1 Term 3.572 kg (7 lb 14 oz) M Vag-V acuum Living 2 Term 3.629 kg (8 lb) F Vag-S pont Living Last Filed Vital Signs Vital Sign Reading Time Taken Comments Blood Pressure 120/70 05/12/2024 11:21 AM CDT Pulse 65 05/12/2024 11:21 AM CDT Temperature 36.7 C (98 F) 05/12/2024 11:21 AM CDT Respiratory Rate 16 05/12/2024 11:21 AM CDT Oxygen Saturation 99% 05/12/2024 11:21 AM CDT Inhaled Oxygen Concentration - - Weight 66.7 kg (147 lb) 05/12/2024 11:21 AM CDT Height 162.6 cm (5' 4) 05/12/2024 11:21 AM CDT Body Mass Index 25.23 05/12/2024 11:21 AM CDT Plan of Treatment Health Maintenance Due Date Last Done Comments Colon Cancer Screening-Colonoscopy 1969 Hepatitis C Screening 1970 Hepatitis B Screening 09/29/1987 Zoster Vaccine (1 of 2) 09/29/2019 DTaP/Tdap/Td Vaccine (2 - Td or Tdap) 12/03/2019 12/02/2009 Breast Cancer Screening-Mammogram 10/20/2023 10/19/2022, 04/18/2017, 01/01/2014, Additional history exists Covid-19 Vaccine (3 - season) 2024 06/16/2020, 05/26/2020 Influenza Vaccine (#1) 2024 , 12/15/2022, 11/19/2016, Additional history exists Depression Screening 05/12/2025 05/12/2024, 12/25/2023, 04/30/2023, Additional history exists Regular Well Visit/Exam 18-64 05/12/2025 05/12/2024, 12/25/2023, 04/30/2023, Additional history exists Cervical Cancer Screening Discontinued 04/03/2017 Colon Cancer Screening-DNA Stool Discontinued 06/04/2024, 04/23/2021 Colon Cancer Screening-FIT Discontinued 06/04/2024, Pneumococcal vaccine <65 Aged Out No longer eligible based on patient's age to complete this topic Procedures Procedure Name Priority Date/Time Associated Diagnosis Comments STOOL DNA COLOGUARD Routine 06/04/2024 6:35 AM CDT Colon cancer screening SCREENING MAMMOGRAM BILATERAL W ARIEL Schedule Routine, Read Routine (OP Routine) 10/19/2022 2:38 PM CDT HM PAP SMEAR Routine 04/03/2017 from Last 3 Months or Most Recently Relevant to Health Maintenance Results * Stool DNA - Cologuard (06/04/2024 6:35 AM CDT) Stool DNA - Cologuard Negative Negative [facility] (CLIA #:[id number]) Comment: The Cologuard (TM) test was performed on this specimen. NEGATIVE TEST RESULT. A negative Cologuard result indicates a low likelihood that a colorectal cancer (CRC) or advanced adenoma (adenomatous polyps with more advanced pre-malignant features) is present. The chance that a person with a negative Cologuard test has a colorectal cancer is less than 1 in 1500 (negative predictive value >99.9%) or has an advanced adenoma is less than 5.3% (negative predictive value 94.7%). These data are based on a prospective cross-sectional study of 10,000 individuals at average risk for colorectal cancer who were screened with both Cologuard and colonoscopy. (Eugenie Leavitt al, N Engl J Med 2014;370(14):1286- 1297) The normal value (reference range) for this assay is negative. COLOGUARD RE-SCREENING RECOMMENDATION: Periodic colorectal cancer screening is an important part of preventive healthcare for asymptomatic individuals at average risk for colorectal cancer. Following a negative Cologuard result, the [place] [employer] Society and U.S. Multi-Society Task Force screening guidelines recommend a Cologuard re-screening interval of 3 years. References: [place] [employer] Guideline for Colorectal Cancer Screening: https://www.cancer.org/cancer/wkzkt-clvgfp-gqhmtp/ssuueaiaq-tdqaybuko-lavfymy/ac s-rec ommendations.html.; Clinton DK, Elvia SNYDER, Fito RinconK, Colorectal Cancer Screening: Recommendations for Physicians and Patients from the U.S. Multi-Society Task Force on Colorectal Cancer Screening , Am J Gastroenterology 2017; 112:6834-0242. TEST DESCRIPTION: Composite algorithmic analysis of stool DNA-biomarkers with hemoglobin immunoassay. Quantitative values of individual biomarkers are not reportable and are not associated with individual biomarker result reference ranges. Cologuard is intended for colorectal cancer screening of adults of either sex, 45 years or older, who are at average-risk for colorectal cancer (CRC). Cologuard has been approved for use by the U.S. FDA. The performance of Cologuard was established in a cross sectional study of average-risk adults aged 50-84. Cologuard performance in patients ages 45 to 49 years was estimated by sub-group analysis of near-age groups. Colonoscopies performed for a positive result may find as the most clinically significant lesion: colorectal cancer [4.0%], advanced adenoma (including sessile serrated polyps greater than or equal to 1cm diameter) [20%] or non- advanced adenoma [31%]; or no colorectal neoplasia [45%]. These estimates are derived from a prospective cross-sectional screening study of 10,000 individuals at average risk for colorectal cancer who were screened with both Cologuard and colonoscopy. (Eugenie Leavitt al, N Engl J Med 2014;370(14):3827-0164.) Cologuard may produce a false negative or false positive result (no colorectal cancer or precancerous polyp present at colonoscopy follow up). A negative Cologuard test result does not guarantee the absence of CRC or advanced adenoma (pre-cancer). The current Cologuard screening interval is every 3 years. ([place] Cancer Society and U.S. Multi-Society Task Force). Cologuard performance data in a 10,000 patient pivotal study using colonoscopy as the reference method can be accessed at the following location: www.[employer].Hassle.com/results. Additional description of the Cologuard test process, warnings and precautions can be found at www.cologuard.com. Stool 06/04/2024 6:35 AM CDT 06/05/2024 9:23 AM CDT Selvin Dhillon MD LAB BODY FLUIDS AND STOOLS ORDERABLES Final Result [facility] (CLIA #:[id number]) [address] [place] [address] * Screening Mammogram Bilateral W Ariel (10/19/2022 2:38 PM CDT) Anatomical Region Laterality Modality Breast Bilateral Mammography Historical Provider IMG MAMMO PROCEDURES Katy l Result * PAP SMEAR (04/03/2017) Pap smear Normal Comment:vaginal Historical Provider HEALTH MAINTENANCE Final Result from Last 3 Months or Most Recently Relevant to Health Maintenance Insurance [facility]O Address: [address] [address] [facility]O Address: [address] [address] Care Teams Sound Effects Manager Relationship Specialty Start Date End Date Selvin Dhillon MD [address] [place] [address] PCP - General Internal Medicine 04/02/20 Narayan Morrison MD [address] [place] [address] Life Skills Instructor Obstetrics and Gynecology 04/02/20
--- OUTSIDE RECORDS SUMMARY | 2024-11-25 15:56 | XMS_ITS | Encounter Summary ---
Author Organization [facility] Address [address] [place] [address] Phone Care Team Providers Care Wind Tunnel Mechanic Name Role Phone Elvia Rebolledo MD Primary Care Provider Selvin Dhillon MD Primary Care Provider [phone] Narayan Morrison MD Unavailable [phone] Encounter Details Date Type Department Care Team (Late st Contact Info) Description 04/03/2017 Orders Only [facility] ProviderDanica MD [address] [place] [id number] Social History Tobacco Use Types Packs/Day Years Used Date Smoking Tobacco: Never Smokeless Tobacco: Never Alcohol Use Standard Drinks/Week Comments Yes 0 (1 standard drink = 0.6 oz pur e alcohol) Comments Unknown Sex and Gender Information Value Date Recorded Sex Assigned at Not on file Legal Sex Female 6:02 PM [place] ATTOR[place] Gender Identity Female 06/15/2020 8:47 AM CDT Sexual Orientation Straight 06/15/2020 8: 47 AM CDT documented as of this encounter Plan of Treatment Not on file documented as of this encounter Procedures Procedure Name Priority Date/Time Associated Diagnosis Comments CYTOLOGY 04/03/2017 12:00 AM [place] ATTOR[place] documented in this encounter Results * CYTOLOGY (04/03/2017 12:00 AM [place] ATTOR[place]) Narrative 04/03/2017 12:00 AM [place] ATTOR[place] Ordered by an unspecified provider. us Historical Provider LAB CYTOLOGY ORDERABLES F inal Result documented in this encounter Visit Diagnoses Not on filedocumented in this encounter Additional Health Concerns Infection Onset Date Last Indicated Resolved Time COVID: Suspected 03/28/2022 03/28/2022 03/28/2022 1:30 PM [place] ATTOR[place] COVID: Suspected 04/18/2022 04/18/2022 04/19/2022 3:05 AM [place] ATTOR[place] documented as of this encounter Care Teams Wind Tunnel Mechanic Relationship Specialty Start Date End Date Elvia Rebolledo MD PCP - General 04/12/06 04/01/20 Selvin Dhillon MD [address] [place] [address] PCP - General Internal Medicine 04/02/20 Narayan Morrison MD [address] [facility] [address] [place] [address] Park Landscape Architect Obstetrics and Gynecology 04/02/20 documented as of this encounter
--- OUTSIDE RECORDS SUMMARY | 2024-11-25 15:56 | XMS_ITS | Encounter Summary ---
Author Organization [facility] Address [address] [place] [address] Phone Care Team Providers Care Paediatrician Name Role Phone Selvin Dhillon MD Primary Care Provider [phone] Narayan Morrison MD Unavailable [phone] Encounter Details Date Type Department Care Team (Late st Contact Info) Description 04/06/2021 Orders Only [facility] [address] [place] [address] Scanning, Provider Social History Tobacco Use Types Packs/Day Years Used Date Smoking Tobacco: Never Smokeless Tobacco: Never Alcohol Use Standard Drinks/Week Comments Yes 0 (1 standard drink = 0.6 oz pur e alcohol) PHQ-2 Answer Date Recorded PHQ-2 Total Score (If total score is 3 or more points, staff should administer the PHQ-9) 0 06/15/2020 Comments No Sex and Gender Information Value Date Recorded Sex Assigned at Not on file 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 Gender Identity Female 06/15/2020 8:47 AM CDT Sexual Orientation Straight 06/15/2020 8: 47 AM CDT documented as of this encounter Plan of Treatment Not on file documented as of this encounter Procedures Procedure Name Priority Date/Time Associated Diagnosis Comments SCAN - LABS 04/06/2021 documented in this encounter Results * SCAN - LABS (04/06/2021) us Provider Scanning Edited Result - Final documented in this encounter Visit Diagnoses Not on filedocumented in this encounter Additional Health Concerns Infection Onset Date Last Indicated Resolved Time COVID: Suspected 03/28/2022 03/28/2022 03/28/2022 1:30 PM MARINE STEAM FITTER COVID: Suspected 04/18/2022 04/18/2022 04/19/2022 3:05 AM MARINE STEAM FITTER documented as of this encounter Care Teams Paediatrician Relationship Specialty Start Date End Date Selvin Dhillon MD [address] [place] [address] PCP - General Internal Medicine 04/02/20 Narayan Morrison MD [address] [facility] [address] [place] [address] Business Systems Developer Obstetrics and Gynecology 04/02/20 documented as of this encounter
--- OUTSIDE RECORDS SUMMARY | 2024-11-25 15:56 | XMS_ITS | Patient Health Record ---
Author Organization [facility] Address [address] [address] Care Team Providers Care Interventional Radiology Tech Name Role Phone IsrraelAlex rossion Unavailable [phone] Reason For Referral No Information Plan Of Treatment No Information Insurance Providers Payer Name Payer Address Payer Phone Subscriber Number Group Number Insured Name Patient Relationship to Insured Coverage Start Date Coverage End Date [facility] [address] [address] [place] [address] [id number] Caryl Harvey Self - patient is the insured
== END 2024-11-25 15:01 | disposition home or self-care (01) ==
LOC: ANHFOHIMG 15:01
PROVIDERS: PCP Internal Medicine Infectious Disease; Visit Provider Internal Medicine Infectious Disease
DX: Z12.31 Encounter for screening mammogram for malignant neoplasm of breast (principal)
CPT/HCPCS: 77063; 77067

== ENCOUNTER 2025-01-23 14:14 | Outpatient (CLI) | payer OTHER, SELFPAY ==
[2025-01-27 10:09] LABS: ANA by IFA Rfx Titer/Pattern Negative (.)
== END 2025-01-23 14:15 | disposition home or self-care (01) ==
LOC: ANHLAB 14:16
PROVIDERS: PCP Internal Medicine Infectious Disease; Visit Provider Internal Medicine Infectious Disease
DX: T78.40XA Allergy, unspecified, initial encounter (principal)
CPT/HCPCS: 86038; 86225